=== PATIENT | female | born 2000 | race Two or more races ===

== ENCOUNTER 2024-10-10 09:22 | Emergency (ER) | payer OTHER ==
[~2024-10-10] VITALS: Ht 160 cm; Wt 63.5 kg
[2024-10-10] MEDS ORDERED: TETANUS & DIPHTHERIA TOX,ADULT 0.5 ML VIAL IM STA (10:19)
[2024-10-10] MEDS ORDERED: CEFAZOLIN SODIUM 1,000 MG VIAL IM STA (10:20)
== END 2024-10-10 12:06 | disposition home or self-care (01) ==
LOC: ER 09:23
DX: S91.312A Laceration without foreign body, left foot, initial encounter (principal); W45.8XXA Other foreign body or object entering through skin, initial encounter; Y93.89 Activity, other specified; Y92.832 Beach as the place of occurrence of the external cause; Y99.9 Unspecified external cause status